=== PATIENT | male | born 1990 | race Caucasian/White ===

== ENCOUNTER 2017-12-11 21:03 | Emergency (ER) | payer OTHER ==
[2017-12-11 21:13] VITALS: BP 133/77
--- NOTE | 2017-12-11 21:38 | UC ---
Laceration HPI - HPI Summary HPI Summary: WHILE WORKING ON HIS TRUCK, LEFT 3RD FINGER WAS CAUGHT BY AN IMPACT WRENCH AND PT SUSTAINED A LACERATION. STATES THERE WAS NO CRUSH INJURY AND IS NOT AT ALL CONCERNED ABOUT FRACTURE. UTD TETANUS. - History Of Current Complaint Chief Complaint: UCLaceration Stated Complaint: FINGER LAC Time Seen by Provider: 12/11/17 21:22 Hx Obtained From: Patient Laceration Location: Finger - LEFT 3RD Mechanism Of Injury: Blunt Trauma Onset/Duration: Sudden Onset, Lasting Hours, Still Present Severity: Moderate Pain Intensity: 5 Pain Scale Used: 0-10 Numeric Related History: Dominant Hand Right - Allergies/Home Medications Allergies/Adverse Reactions: Allergies Allergy/AdvReac Type Severity Reaction Status Date / Time No Known Allergies Allergy Verified 12/11/17 21:13 PMH/Surg Hx/FS Hx/Imm Hx Previously Healthy: Yes - Surgical History Surgical History: None - Family History Known Family History: Negative: Hypertension - Social History Alcohol Use: Occasionally Substance Use Type: None Smoking Status (MU): Never Smoked Tobacco - Immunization History Most Recent Tetanus Shot: <5 YEARS Review of Systems Constitutional: Negative Skin: Other - LACERATION Respiratory: Negative Cardiovascular: Negative Gastrointestinal: Negative All Other Systems Reviewed And Are Negative: Yes Physical Exam Triage Information Reviewed: Yes Appearance: Well-Appearing, No Pain Distress, Well-Nourished Vital Signs: Initial Vital Signs Temp 97.8 F 12/11/17 21:11 Pulse 76 12/11/17 21:11 Resp 12 12/11/17 21:11 BP 133/77 12/11/17 21:11 Pulse Ox 99 12/11/17 21:11 Vital Signs Reviewed: Yes Eyes: Positive: Conjunctiva Clear ENT: Positive: Hearing grossly normal Neck: Positive: Supple Respiratory: Positive: No respiratory distress, No accessory muscle use Cardiovascular: Positive: Pulses Normal Abdomen Description: Positive: Soft Musculoskeletal: Positive: ROM Intact Neurological: Positive: Alert Psychological: Positive: Age Appropriate Behavior Skin: Positive: Other - 1.5CM FLAP LACERATION LEFT 3RD FINGER LATERAL TO NAILBED Laceration Repair - Laceration Repair 1 Description: Irregular Laceration Size After Repair: Length (cm) - 1.5CM, Width (mm) - 0MM, Depth (mm) - 2MM Modified For Repair: No Irrigation With Pressure Irrigation Device: Yes Closure Material: Skin Adhesive, SteriStrips Laceration Course/Dx - Course/Dx Course Of Treatment: PT DECLINES XRAY TODAY. LAC REPAIRED WITH DERMABOND AND STERISTRIPS. - Differential Dx - Laceration/Wound Provider Diagnoses: LACERATION REPAIR LEFT 3RD FINGER Discharge - Sign-Out/Discharge Documenting (check all that apply): Patient Departure All imaging exams completed and their final reports reviewed: No Studies - Discharge Plan Condition: Stable Disposition: HOME Prescriptions: Cephalexin CAP* [Keflex 500 CAP*] 500 mg PO BID #14 cap Patient Education Materials: Finger Laceration (ED) Referrals: Non Staff,Doctor [Primary Care Provider] - Additional Instructions: KEEP DRESSINGS IN PLACE AND DRY FOR THE FIRST 24 HRS. THEN YOU MAY REMOVE THE DRESSING. OKAY TO GET WET BRIEFLY. PAT DRY AND RE-BANDAGE. SEEK FOLLOW-UP IF YOU DEVELOP SPREADING REDNESS OF THE SKIN, PURULENT DRAINAGE, FEVER, INCREASED PAIN OR ANY OTHER CONCERNING SYMPTOMS. TAKE THE ANTIBIOTICS FOR THE FULL 7 DAYS TO HELP PREVENT INFECTION. THE STERISTRIPS WILL FALL OFF ON THEIR OWN IN THE NEXT 1-2 WEEKS. DO NOT PUT ANY OINTMENT ON TOP OF THEM. DO NOT SUBMERGE IN WATER FOR PROLONGED PERIOD OF TIME. OKAY FOR BRIEF SHOWER AFTER 24 HOURS AND THEN BE SURE TO ALLOW TO DRY COMPLETELY. CALL THE NUMBER BELOW FOR ASSISTANCE IN ESTABLISHING WITH A PCP An additional resource available to assist in finding the appropriate physician for your health care needs is [facility] ([facility]). You may contact them by calling [phone]. - Billing Disposition and Condition Condition: STABLE Disposition: Home
== END 2017-12-11 22:20 | disposition home or self-care (01) ==
LOC: UCEAST 21:03
DX: S61.213A Laceration without foreign body of left middle finger without damage to nail, initial encounter (principal); W23.0XXA Caught, crushed, jammed, or pinched between moving objects, initial encounter; Y93.89 Activity, other specified; Y92.9 Unspecified place or not applicable
CPT/HCPCS: 12001; 99202; G0463

== ENCOUNTER 2019-01-17 13:39 | Emergency (ER) | payer OTHER ==
[2019-01-17 13:47] VITALS: BP 135/88
[2019-01-17] MEDS ORDERED: Lidocaine 1% MPF ** 5 ML VIAL INJ ONE (14:17)
--- NOTE | 2019-01-17 14:28 | UC ---
Laceration HPI - HPI Summary HPI Summary: cut left hand on metal 2 h ago states Tdap is UTD - History Of Current Complaint Chief Complaint: UCLaceration Stated Complaint: HAND LAC Time Seen by Provider: 01/17/19 13:54 Hx Obtained From: Patient Laceration Location: Hand Mechanism Of Injury: Sharp Trauma Onset/Duration: Sudden Onset Severity: Mild Pain Intensity: 4 Related History: Dominant Hand Right - Allergies/Home Medications Allergies/Adverse Reactions: Allergies Allergy/AdvReac Type Severity Reaction Status Date / Time No Known Allergies Allergy Verified 01/17/19 13:48 Home Medications: Home Medications NK [No Home Medications Reported] 01/17/19 [History Confirmed 01/17/19] PMH/Surg Hx/FS Hx/Imm Hx Previously Healthy: Yes - Surgical History Surgical History: None - Family History Known Family History: Negative: Hypertension - Social History Occupation: Employed Full-time Lives: With Family Alcohol Use: Occasionally Substance Use Type: None Smoking Status (MU): Never Smoked Tobacco - Immunization History Most Recent Tetanus Shot: <5 YEARS Review of Systems All Other Systems Reviewed And Are Negative: Yes Constitutional: Positive: Negative Respiratory: Positive: Negative Cardiovascular: Positive: Negative Musculoskeletal: Positive: Negative. Negative: Decreased ROM Neurological: Positive: Negative Psychological: Positive: Negative Is Patient Immunocompromised?: No Physical Exam Triage Information Reviewed: Yes Appearance: Well-Appearing, No Pain Distress, Well-Nourished Vital Signs: Initial Vital Signs Temp 98 F 01/17/19 13:45 Pulse 58 01/17/19 13:45 Resp 16 01/17/19 13:45 BP 135/88 01/17/19 13:45 Pulse Ox 100 01/17/19 13:45 Vital Signs Reviewed: Yes Respiratory Exam: Normal Respiratory: Positive: Lungs clear Cardiovascular Exam: Normal Cardiovascular: Positive: RRR Musculoskeletal Exam: Normal Musculoskeletal: Positive: Strength Intact, ROM Intact Neurological Exam: Normal Psychological Exam: Normal Skin: Positive: Other - 1.3 cm linear lac web L hand Laceration Repair - Laceration Repair 1 Description: Linear Laceration Size After Repair: Length (cm) - 1.3, Width (mm) - 5mm, Depth (mm) - 4mm Modified For Repair: No Type Injection: Local Anesthesia Used: 1.0% Lido Irrigation With Pressure Irrigation Device: Yes Closure Material: Sutures Closure Method: Single Layer Suture Of: Skin Suture Type: Nylon - three 4.0 nylon sutures placed Laceration Course/Dx - Differential Dx - Laceration/Wound Differental Diagnoses: Avulsion, Laceration, Tendon Laceration - Diagnosis Provider Diagnosis: Laceration of hand Discharge ED - Sign-Out/Discharge Documenting (check all that apply): Patient Departure All imaging exams completed and their final reports reviewed: No Studies - Discharge Plan Condition: Good Disposition: HOME Patient Education Materials: Laceration (DC) Referrals: No Primary Care Phys,NOPCP [Primary Care Provider] - Additional Instructions: keep wound clean and dry and ice and elevate hand protect from injury and chemical exposure at work use ibuprofen 600-800mg every 6 hours as needed for pain have sutures removed in 10 days - Billing Disposition and Condition Condition: GOOD Disposition: Home
== END 2019-01-17 14:57 | disposition home or self-care (01) ==
LOC: UCEAST 13:39
DX: S61.412A Laceration without foreign body of left hand, initial encounter (principal); W26.8XXA Contact with other sharp object(s), not elsewhere classified, initial encounter; Y92.9 Unspecified place or not applicable
CPT/HCPCS: 12001; 99211; G0463